=== PATIENT | male | born 1970 | race African-American/Black ===

== ENCOUNTER 2018-06-08 10:23 | Emergency (ER) | payer OTHER ==
[~2018-06-08] VITALS: Ht 182.9 cm; Wt 91.0 kg
[2018-06-08 10:29] VITALS: BP 149/91
== END 2018-06-08 14:05 | disposition left against medical advice (07) ==
LOC: ER 10:23
DX: M54.5 Low back pain (principal); Z53.21 Procedure and treatment not carried out due to patient leaving prior to being seen by health care provider